=== PATIENT | male | born 1985 ===

== ENCOUNTER 2018-08-26 05:03 | Emergency (ER) | payer OTHER ==
[2018-08-26 05:07] VITALS: BP 140/97; PULSE 64; RESP 18; TEMP 97.8; O2SAT 95
--- NOTE | 2018-08-26 06:23 | ED PDOC ---
HPI: Chest Pain <Carisa Odonnell F - Last Filed: 08/26/18 07:10> Chief Complaint (Provider): Chest pain History Per: Patient History/Exam Limitations: no limitations Onset/Duration Of Symptoms: Hrs Current Symptoms Are (Timing): Still Present Quality: "Pain" Associated Symptoms: denies: Nausea, Dyspnea, Diaphoresis, Syncope Additional History Per: Patient Additional Complaint(s): 33yo otherwise healthy male, with history of anxiety, comes to ER reporting sudden onset left sided chest pain since 4am today. Patient states he woke from his sleep around 4:15am today due to the chest pain; he states the pain is also present in his left arm and he feels numbness in his hands. Patient states he thought this was due to anxiety so tried to do breathing exercises to calm down but was unsuccessful. Patient states he has had chest pain before- those instances have been associated with anxiety. states he is currently seeing therapist but is not yet on meds. Currently, he states the pain worsens with breathing. No fever, chills, vomiting, shortness of breath or other complaints. PMD: Dr. Rosario <Oleskandr Law Y - Last Filed: 08/26/18 23:32> Time Seen by Provider: 08/26/18 05:06 Chief Complaint (Nursing): Chest Pain Past Medical History Vital Signs: Last Vital Signs Temp 97.8 F 08/26/18 05:05 Pulse 64 08/26/18 05:05 Resp 18 08/26/18 05:05 BP 140/97 H 08/26/18 05:05 Pulse Ox 95 08/26/18 06:25 <Carisa Odonnell F - Last Filed: 08/26/18 07:10> Reviewed: Historical Data, Nursing Documentation, Vital Signs Vital Signs: Last Vital Signs Temp 97.8 F 08/26/18 05:05 Pulse 64 08/26/18 05:05 Resp 18 08/26/18 05:05 BP 140/97 H 08/26/18 05:05 Pulse Ox 95 08/26/18 05:05 Primary Care Provider: Tyson Rosario - Medical History PMH: Anxiety - Surgical History Surgical History: No Surg Hx - Family History Family History: Denies: Stroke, [place], CAD, Diabetes, Hypertension - Living Arrangements Living Arrangements: With Family - Social History Current smoker - smoking cessation education provided: Yes (3 cigarettes/day) Alcohol: Social Drugs: Denies <Oleksandr Law - Last Filed: 08/26/18 23:32> - Allergies Allergies/Adverse Reactions: Allergies Allergy/AdvReac Type Severity Reaction Status Date / Time No Known Allergies Allergy Verified 08/26/18 05:05 THOMAS Risk Score for UA/NSTEMI - THOMAS Risk Score Age > 64: NO 3 or more CAD Risk Factors: NO Known CAD (Stenosis greater than 50%): NO Aspirin use in past 7 days: NO Severe Angina: NO EKG ST changes greater than 0.5mm: NO Positive Cardiac Marker: NO THOMAS Score: 0 Risk %: 5% <AniRobblanca Last Filed: 08/26/18 23:32> Curb-65 Severity Score - CURB-65 Severity Score Confusion: No Bun >19mg/dl (>7mmol/L): No Respiratory Rate greater than/equal to 30: No Systolic BP <90 or Diastolic BP less than/equal 60mmHg: No Age >64: No Curb-65 Score: 0 Percentage 30-day mortality: 0.6% <AniOleksandr - Last Filed: 08/26/18 23:32> Wells Criteria for PE - Wells Criteria for Pulmonary Embolism Clinical Signs and Symptoms of DVT: No P.E is #1 Diagnosis, or Equally Likely: No Heart Rate >100: No Immobilization at least 3 days;Surgery previous 4 weeks: No Previous, objectively diagnosed PE or DVT: No Hemoptysis: No Malignancy w/treatment within 6 months, or palliative: No Total Score: 0 <Oleksandr Law Last Filed: 08/26/18 23:32> Review of Systems ROS Statement: Except As Marked, All Systems Reviewed And Found Negative Constitutional: Negative for: Fever, Chills Cardiovascular: Positive for: Chest Pain Respiratory: Negative for: Cough, Shortness of Breath Gastrointestinal: Negative for: Abdominal Pain Musculoskeletal: Positive for: Arm Pain (left) Neurological: Positive for: Numbness (left hand) <Oleksandr Law Last Filed: 08/26/18 23:32> Physical Exam - Reviewed Nursing Documentation Reviewed: Yes Vital Signs Reviewed: Yes - Physical Exam Appears: Positive for: Non-toxic, Uncomfortable Head Exam: Positive for: ATRAUMATIC, NORMAL INSPECTION, NORMOCEPHALIC Skin: Positive for: Normal Color Eye Exam: Positive for: EOMI, PERRL ENT: Negative for: Pharyngeal Erythema, Tonsillar Exudate, Tonsillar Swelling Neck: Positive for: Normal, Supple Cardiovascular/Chest: Positive for: Regular Rate, Rhythm. Negative for: Tachycardia Respiratory: Positive for: Normal Breath Sounds. Negative for: Respiratory Distress Gastrointestinal/Abdominal: Positive for: Normal Exam, Soft Back: Positive for: Normal Inspection Extremity: Positive for: Normal ROM Neurological/Psych: Positive for: Awake, Alert, Normal Tone, Mood/Affect (calm, but anxious affect). Negative for: Motor/Sensory Deficits <Oleksandr Law Y - Last Filed: 08/26/18 23:32> - Laboratory Results Result Diagrams: 08/26/18 06:44 08/26/18 06:44 Lab Results: Troponin I < 0.0120 ng/mL (0.00-0.120) 08/26/18 06:44 Total Bilirubin 0.5 mg/dl (0.2-1.3) 08/26/18 06:44 AST 27 U/L (17-59) 08/26/18 06:44 ALT 36 U/L (21-72) 08/26/18 06:44 Alkaline Phosphatase 69 U/L (38-126) 08/26/18 06:44 Total Protein 6.9 G/DL (6.3-8.2) 08/26/18 06:44 Albumin 4.0 g/dL (3.5-5.0) 08/26/18 06:44 Globulin 2.9 gm/dL (2.2-3.9) 08/26/18 06:44 Albumin/Globulin Ratio 1.4 (1.0-2.1) 08/26/18 06:44 <Carisa Odonnell - Last Filed: 08/26/18 07:10> - Laboratory Results Result Diagrams: 08/26/18 06:44 08/26/18 06:44 - ECG O2 Sat by Pulse Oximetry: 95 (RA) Pulse Ox Interpretation: Normal <Oleksandr Law Y - Last Filed: 08/26/18 23:32> Medical Decision Making Medical Decision Making: EKG: Sinus bradycardia 54bmp. <Carisa Odonnell - Last Filed: 08/26/18 07:10> Medical Decision Making: Impression: Left sided chest pain, likely anxiety related Plan: -- Labs -- EKG -- CXR 07 Patient signed out to Dr. Odonnell pending labs, reassessment. Scribe Attestation: Documented by Consuelo Kumar, acting as a scribe for Oleksandr Law MD. Provider Scribe Attestation: All medical record entries made by the Scribe were at my direction and personally dictated by me. I have reviewed the chart and agree that the record accurately reflects my personal performance of the history, physical exam, medical decision making, and the department course for this patient. I have also personally directed, reviewed, and agree with the discharge instructions and disposition. <Oleksandr Law - Last Filed: 08/26/18 23:32> Disposition <Carisa Odonnell - Last Filed: 08/26/18 07:10> - Patient ED Disposition Is Patient to be Admitted: Transfer of Care - Disposition Disposition: Transfer of Care Disposition Time: 07:00 Patient Signed Over To: Carisa Odonnell <Oleksandr Law - Last Filed: 08/26/18 23:32> - Clinical Impression Clinical Impression: Chest pain - Disposition Referrals: Tyson Rosario MD [Family Provider] - Condition: IMPROVED Instructions: Chest Pain Forms: [facility] (Slovak)
[2018-08-26 06:47] LABS: BASO # 0.1 K/uL (0.0-0.2); BASO % 0.6 % (0.0-2.0); EOS # 0.2 K/uL (0.0-0.7); EOS % 2.6 % (0.0-4.0); HEMOGLOBIN 13.7 g/dL (12.0-18.0); LYMPH # 2.6 K/uL (1.0-4.3); LYMPH % 29.5 % (20.0-40.0); MEAN CORPUSCULAR HEMOGLOBIN 30.9 pg (27.0-31.0); MEAN CORPUSCULAR HGB CONC 33.6 g/dL (33.0-37.0); MEAN PLATELET VOLUME 9.5 fl (7.2-11.7); MONO # 0.8 K/uL (0.0-0.8); MONO % 8.8 % (0.0-10.0); NEUT # 5.1 K/uL (1.8-7.0); NEUT % 58.5 % (50.0-75.0); RBC 4.44 Mil/uL (4.40-5.90); RED CELL DISTRIBUTION WIDTH 13.7 % (11.5-14.5); WHITE BLOOD COUNT 8.7 K/uL (4.8-10.8)
[2018-08-26 06:59] LABS: ALB/GLOB RATIO 1.4 (1.0-2.1); ALT/SGPT 36 U/L (21-72); AST/SGOT 27 U/L (17-59); BLOOD UREA NITROGEN 14 mg/dl (9-20); GFR NON-AFRICAN AMERICAN > 60
--- NOTE | 2018-08-26 07:17 | ED PDOC ---
- Laboratory Results Result Diagrams: 08/26/18 06:44 08/26/18 06:44 Lab Results: Troponin I < 0.0120 ng/mL (0.00-0.120) 08/26/18 06:44 Total Bilirubin 0.5 mg/dl (0.2-1.3) 08/26/18 06:44 AST 27 U/L (17-59) 08/26/18 06:44 ALT 36 U/L (21-72) 08/26/18 06:44 Alkaline Phosphatase 69 U/L (38-126) 08/26/18 06:44 Total Protein 6.9 G/DL (6.3-8.2) 08/26/18 06:44 Albumin 4.0 g/dL (3.5-5.0) 08/26/18 06:44 Globulin 2.9 gm/dL (2.2-3.9) 08/26/18 06:44 Albumin/Globulin Ratio 1.4 (1.0-2.1) 08/26/18 06:44 - ECG O2 Sat by Pulse Oximetry: 95 (RA) - Radiology X-Ray: Interpreted by Tn X-Ray Interpretation: No Acute Disease Medical Decision Making Medical Decision Makin:45 Pt feels better. Disposition - Clinical Impression Clinical Impression: Chest pain - POA Present On Arrival: None - Disposition Referrals: Tyson Rosario MD [Family Provider] - Disposition: Routine/Home Disposition Time: 07:49 Condition: IMPROVED Instructions: Chest Pain Forms: [facility] (Indonesian) Addendum Addendum: 08/26/18 07:00 Pt signed out by Dr. Law pending labs and disposition.
--- NOTE | 2018-08-26 08:21 | RAD ---
Date of service: 08/26/2018 HISTORY: cp COMPARISON: No prior. TECHNIQUE: Chest PA and lateral views FINDINGS: LUNGS: No active pulmonary disease. PLEURA: No significant pleural effusion identified. No pneumothorax apparent. CARDIOVASCULAR: No aortic atherosclerotic calcification present. Normal cardiac size. No pulmonary vascular congestion. OSSEOUS STRUCTURES: No significant abnormalities. VISUALIZED UPPER ABDOMEN: Normal. OTHER FINDINGS: None. IMPRESSION: No acute cardiopulmonary disease appreciated.
--- NOTE | 2018-08-26 13:30 | CARD ---
APPROVED REPORT Date of service: 08/26/2018 EKG Measurement Heart [id number] <Conclusion> Sinus bradycardia Otherwise normal ECG
== END 2018-08-26 08:15 | disposition home or self-care (01) ==
LOC: H.ER 05:03
DX: R07.89 Other chest pain (principal); F17.210 Nicotine dependence, cigarettes, uncomplicated; F41.9 Anxiety disorder, unspecified